=== PATIENT | female | born 1980 | race Caucasian/White ===

== ENCOUNTER 2016-09-04 13:21 | Emergency (ER) | payer SELFPAY ==
[2016-09-04] MEDS ORDERED: ALBUTEROL SULFATE 2.5 MG/3 ML NEB ONE (13:35)
[2016-09-04 13:56] VITALS: RESP 18; TEMP 97.4
--- NOTE | 2016-09-04 14:03 | PDOC ---
Upper Respiratory HPI - General Chief Complaint: Respiratory Complaint Stated Complaint: HOARSE, ACHING Date Seen by Provider: 09/04/16 Time Seen by Provider: 13:25 Source: POSITIVE: Patient Exam Limitations: POSITIVE: No limitations Nurse's Notes Reviewed & Considered: Yes - History of Present Illness Initial Comments: The patient is a 35-year-old female who presents to the emergency department with with increased cough. She states that she had onset of upper respiratory symptoms approximately a week ago. She has continued nasal drainage as well as drainage in the back of her throat. She has had cough which is occasionally productive of greenish colored phlegm. She states that she has not slept for the past 2 or 3 nights secondary to cough. She has had some subjective fevers and chills. She reports hoarse voice for the past several days as well. She states that she has been coughing so hard that her back now hurts with coughing. She does admit to smoking approximately half pack of cigarettes per day although she has decreased her use since she has been ill. She denies any known history of lung disease. - Patient Home Medications Home Medications: Home Medications Albuterol 17 gm IH Q4H PRN #1 aer.refill 09/04/16 Azithromycin [Zithromax] 250 mg PO DAILY #6 tab 09/04/16 Prometh/Codeine 10/6.25mg/5ml [Phenergan/Codeine 10/6.25mg/5ml Liq] 5 - 10 ml PO Q6H PRN #120 ml 09/04/16 - Patient Allergies Allergies/Adverse Reactions: Allergies Allergy/AdvReac Type Severity Reaction Status Date / Time Sulfa (Sulfonamide Allergy Intermediate HIVES AND Verified 09/04/16 13:33 Antibiotics) SWOLLEN EYES Past Medical History - heen HEENT History: Denies History Cardiovascular History: Denies History Respiratory History: Denies History Gastrointestinal History: Denies History Genitourinary History: Denies History Endocrine History: Denies History Musculoskeletal History: Denies History Prosthesis or Implant: No Neurological History: Denies History Blood Disorders: Denies History Psychiatric History: Denies History Female Reproductive History: Hysterectomy LMP: 2012 Cancer Treatment / Date(s) of Treatment: 2012 In Past Year Been Physically Harmed or Verbally Threatened: No History of MDRO: No Tobacco Use: Current Every Day Smoker Alcohol Use: Rarely Substance Use Type: None Previous Surgical History: Yes Type / Date of Surgery: R ULNAR NERVE TRANSPOSITION, L KNEE SCOPE/ SCRAPING, HYST Anesthesia Reactions: No Past Medical History Reviewed: Reviewed - No Changes ROS - Limitations ROS Limitations: No Limitations Constitution: REPORTS: Chills, Fever (Subjective) Cardiovascular: REPORTS: Denies Cardiac Symptoms Respiratory: REPORTS: Cough Non Productive, Cough Productive, Wheezing Neurological: REPORTS: Denies Neuro Symptoms Gastrointestinal: REPORTS: Nausea, Vomitting Musculoskeletal: REPORTS: Denies MS Symptoms Eyes: REPORTS: Denies Symptoms ENT: REPORTS: Nasal Drainage Skin: DENIES: Rash Upper Respiratory/Fever Exam - General Appearance General Appearance: REPORTS: Alert, Cooperative, No Acute Distress - HEENT HEENT: POSITIVE: Head Inspection Nml, Eyes Inspection Nml, Ears Inspection Nml, Pharynx Inspect. Nml - Neck Neck: REPORTS: Normal Inspection - Respiratory Respiratory: REPORTS: No Respiratory Distress, Other (Oxygen saturations are 94 % on room air. She does have diminished air movement throughout with occasional expiratory wheeze. Her voice is hoarse.) - Abdomen Abdomen: Soft: (All Quadrants), Denies Tenderness: (All Quadrants), No Distention: (All Quadrants) - Cardiovascular Cardiovascular: REPORTS: Regular Rate and Rhythm, Heart Sounds Normal - Skin Skin: REPORTS: Intact, No Rash - Extremities Extremity: Normal ROM: (All Extremities), Normal Inspection: (All Extremities) - Neurological / Psychological Neurological: POSITIVE: Oriented X3, Other (No focal neurologic deficit) Upper Resp/Fever Progress - Patient's Progress MDM / ED Course: The patient was given an albuterol neb treatment with some subjective improvement and increased air movement on repeat lung exam. At this point she will be prescribed Zithromax 250 mg tablets, 2 tablets today followed by 1 tablet daily for 4 days for treatment of acute bronchitis. In addition she was given Phenergan with codeine as needed for cough and albuterol inhaler as needed for wheezing/cough. She is advised return to the emergency room if she develops increased shortness of breath, any worsening or change in symptoms. She is advised follow-up with primary care if no improvement in 3-5 days. - Consult Counseled: POSITIVE: Patient, Family, RE: DX, RE: Need for F/U Patient Care Time - Estimated PCT Patient Care Time (In Minutes): 15 Vital Signs - Recent Vital Signs Vital Signs: Vital Signs (Last 8 hours) Temp Pulse Resp BP Pulse Ox 09/04/16 13:22 97.4 F 86 18 141/97 93 - VS Reviewed Vital Signs Reviewed: Yes Discharge Clinical Impression: Bronchitis Discharge Disposition: Discharged to Home Condition: Stable Prescriptions / Orders: Albuterol 17 gm IH Q4H PRN #1 aer.refill PRN Reason: Wheezing Prometh/Codeine 10/6.25mg/5ml [Phenergan/Codeine 10/6.25mg/5ml Liq] 5 - 10 ml PO Q6H PRN #120 ml PRN Reason: Cough Azithromycin [Zithromax] 250 mg PO DAILY #6 tab Patient Instructions Given at Discharge: Acute Bronchitis (ED) Additional Instructions: Been prescribed Zithromax which is an antibiotic, take 2 tablets today followed by 1 tablet daily for 4 days. In addition you have been given an albuterol inhaler which she can take 2 puffs every 4 hours as needed for wheezing/cough. You've also been prescribed Phenergan with codeine which he can take one or 2 teaspoons every 6 hours as needed for cough. Push fluids. Return to the emergency room if increased shortness of breath, any worsening or change in symptoms. Follow-up with primary care if no improvement in 3-5 days. Follow Up With: NONE,NONE [Primary Care Provider] -
== END 2016-09-04 14:10 | disposition home or self-care (01) ==
LOC: ER 13:21
DX: J20.9 Acute bronchitis, unspecified (principal); Z72.0 Tobacco use
CPT/HCPCS: 94640; 99282